=== PATIENT | male | born 1970 | race Caucasian/White ===

== ENCOUNTER → 2016-10-28 | Outpatient (CLI) | payer BC ==
[~2016-10-28] MED LIST: ALBINS/ INH; AMLO2.5T PO; BUTA1CAP18 PO; DEXT5CAP PO; DOCU-94 PO; FENO48TA9 PO; GLCSR500 PO; GLIM2TAB2 PO; IMT100 PO; INSU1.2I SC; LISD50CA4 PO; LISI40TA PO; MODA1TAB PO; ONDA8TAB6 PO; POLY335019 PO; WARF2TAB PO
== END | disposition home or self-care (01) ==
LOC: C.RDSM 07:34
PROVIDERS: ATTEND Physical Medicine & Rehabilitation Sports Medicine
DX: Z96.649 Presence of unspecified artificial hip joint (principal)

== ENCOUNTER → 2017-05-05 | Outpatient (CLI) | payer BC | END | disposition home or self-care (01) | LOC: C.RDSM 13:17 | PROVIDERS: ATTEND Physical Medicine & Rehabilitation Sports Medicine | DX: M16.0 Bilateral primary osteoarthritis of hip (principal); Z96.641 Presence of right artificial hip joint ==